=== PATIENT | female | born 1985 | race Caucasian/White ===

== ENCOUNTER → 2016-08-28 | Day surgery (SDC) | payer BC ==
[~2016-08-28] MED LIST: DEXAMETHASONE 4 MG/ML VIAL ONE; DOXYCYCLINE HYCLATE 100 MG CAP/TAB ONE; DOXYCYCLINE HYCLATE 100 MG CAP/TAB PO ONE; HYDROCODONE/APAP 5/325 TAB PO PRN; KETOROLAC 30 MG/1 ML SDV ONE; LIDOCAINE 2% 5 ML SDV ONE; MIDAZOLAM 2 MG/2 ML VIAL ONE; NALOXONE HCL 0.4 MG/ML INJ IVP PRN; ONDANSETRON 4 MG/2 ML VIAL IVP PRN; ONDANSETRON 4 MG/2 ML VIAL ONE; PROPOFOL/EMULSION 500 MG/50 ML BOTTLE IV ONE; fentaNYL 100 MCG/2 ML INJ IVP PRN; fentaNYL 100 MCG/2 ML INJ ONE
[2016-08-28 06:08] LABS: HEMATOCRIT 40.5 % (38.0-47.0); HEMOGLOBIN 13.8 g/dL (12.6-16.3); MEAN CELL HEMOGLOBIN 29.1 pg (27.9-34.1); MEAN CELL HEMOGLOBIN CONCENTR. 34.1 g/dL (32.4-36.7); MEAN CELL VOLUME 85.4 fL (81.5-99.8); RED BLOOD CELL COUNT 4.74 10^6/uL (4.18-5.33); RED CELL DISTRIBUTION WIDTH 13.5 % (11.5-15.2)
[2016-08-28 06:56] LABS: % IMMATURE GRANULYOCYTES 0.6 % (0.0-1.1); ABSOLUTE IMMATURE GRANULOCYTES 0.03 10^3/uL (0.00-0.10); ADD DIFF? NO; ADD MORPH? NO; ADD SCAN? NO; ATYPICAL LYMPHOCYTE FLAG 70 (0-99); FRAGMENT RBC FLAG 0 (0-99); HEMATOCRIT 40.6 % (38.0-47.0); HEMOGLOBIN 13.7 g/dL (12.6-16.3); LEFT SHIFT FLG 0 (0-99); LIPEMIA HEMOLYSIS FLAG 80 (0-99); MEAN CELL HEMOGLOBIN 28.7 pg (27.9-34.1); MEAN CELL HEMOGLOBIN CONCENTR. 33.7 g/dL (32.4-36.7); MEAN CELL VOLUME 85.1 fL (81.5-99.8); MEAN PLATELET VOLUME 11.3 fL (8.7-11.7); PLATELET CLUMPS FLAG 10 (0-99); PLATELET COUNT 161 10^3/uL (150-400); RED BLOOD CELL COUNT 4.77 10^6/uL (4.18-5.33); RED CELL DISTRIBUTION WIDTH 13.6 % (11.5-15.2)
--- NOTE | 2016-08-28 06:59 | GHP ---
[f rep st] PREOP HISTORY AND PHYSICAL DATE OF ADMISSION: 08/28/2016 Patient slated for surgery on 08/28/2016, on the obstetric service. HISTORY UPON PRESENTATION: The patient is a 31-year-old, G1, now A1, white female, who has been tosha gnosed with a missed AB at 10 weeks gestation. The patient had a sure last menstrual period of 03/0 09/2016, so would place her at 14 weeks gestation; however, there has been lack of growth since 10 weeks. The patient had a normal ultrasound and confirmation of good growth at 9 weeks gestation , and there was a viability with a normal heartbeat. Since that time, the patient has continued to have symptoms and nausea, and breast tenderness until approximately a week ago. She was s een on 08/23, at which time, heart tones could not be heard and an ultrasound was performed, a nd there was no cardiac activity. The patient has had serial HCG levels that showed a drop fo rm 7800 down to 5600, and the patient had a repeat ultrasound on 08/27 confirming the missed AB at 1 0 weeks. The patient did have some bleeding on Friday lightly, but no cramping. The patient was ad vised as to options for management. The patient feels she does not want to proceed with waiting for a miscarriage spontaneously, but wants to proceed with a D and C. Risks and benefits of the D and C were discussed with the patient, and the consent form will be signed at bedside before the surgery . 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 LABS: Maternal blood type A positive with negative antibody screen. RPR nonreactive. Rub jostin immune. Hepatitis B surface antigen negative, HIV negative. Cystic fibrosis, SMA, and fragile X negative. Verifi testing negative. Initial hemoglobin 14, hematocrit 42, and platelets 182,000. Urine culture was negative, except for aysha. Gonorrhea and chlamydia were negative. PAST MEDICAL HISTORY: The patient has had hypothyroidism for years and is followed by Dr. Altman . The patient also has vitiligo and celiac disease. PAST SURGICAL HISTORY: Odontectomy. ALLERGIES: The patient has an allergy to penicillin, causing hives. CURRENT MEDICATIONS: Synthroid 112 mcg daily with a double dose 1 day a week, vitamins, ca lcium, Unisom. SOCIAL HISTORY: The patient is and lives with her , [place]. The patient is a nonsmoke r. No alcohol or drug use. PHYSICAL EXAM: GENERAL: Upon admission, the patient is a well-developed, well-nourished, white fem yasir, in no physical distress, but emotionally sad. The patient is clinically afebrile. Weight 132 pounds, height 5 feet 5-1/2 inches, blood pressure 104/50. LUNGS: Clear to auscultation bilaterall y. CARDIOVASCULAR: Regular rate and rhythm. ABDOMEN: Soft and nontender. Pelvic exam performed was normal , with a 10-12 week-sized uterus. EXTREMITIES: Nontender with no edema. ASSESSMENT: Missed , 4 weeks behind gestational age, measuring 10 weeks 0 days with no feta l cardiac activity. Blood type A positive. PLAN: The patient wants to proceed with a D and C. She will arrive n.p.o. on 08/28. Advised to ta ke her morning Synthroid. Offered Anora testing, but the patient declines. History of hypothyroidi sm and celiac disease. /[id number]/MODL
--- NOTE | 2016-08-28 07:34 | PDANEPAE ---
ANE History of Present Illness Missed Ab. ANE Past Medical History - Cardiovascular History Hx Hypertension: No Hx Arrhythmias: No Hx Chest Pain: No Hx Coronary Artery / Peripheral Vascular Disease: No Hx CHF / Valvular Disease: No Hx Palpitations: No - Pulmonary History Hx COPD: No Hx Asthma/Reactive Airway Disease: No Hx Recent Upper Respiratory Infection: No Hx Oxygen in Use at Home: No - Endocrine History Hx Diabetes: No Hypothyroid: Yes ANE Review of Systems Review of Systems: Prior oral surgery without problems. ANE Patient History - Allergies Allergies/Adverse Reactions: Penicillins Allergy (Verified 08/28/16 05:50) Rash - Home Medications Home Medications: Levothyroxine 112 mg PO DAILY 08/28/16 [Last Taken 08/27/16 23:00] - NPO status NPO Since - Liquids (Date): 08/28/16 NPO Since - Liquids (Time): 00:00 NPO Since - Solids (Date): 08/28/16 NPO Since - Solids (Time): 00:00 - Anes Hx Anes Hx: no prior problems - Smoking Hx Smoking Status: Never smoked Marijuana use: No - Alcohol Use Alcohol Use: None - Family Anes Hx Family Anes Hx: neg - N/A ANE Labs/Vital Signs - Labs Result Diagrams: 08/28/16 05:45 - Vital Signs Height: 167.64 cm Weight: 58.967 kg ANE Physical Exam - Airway Neck exam: FROM Mallampati Score: Class 1 Mouth exam: normal dental/mouth exam - Pulmonary Pulmonary: no respiratory distress - Cardiovascular Cardiovascular: regular rate and rhythym - ASA Status ASA Status: I ANE Anesthesia Plan Anesthesia Plan: GA with mask
--- NOTE | 2016-08-28 11:14 | POSTANESTH ---
Post Anesthetic Evaluation Cardiovascular Status: Normal, Stable Respiratory Status: Normal, Stable, Similar to Pre-op Cond. Level of Consciousness/Mental Status: Can Participate in Eval, Mildly Sleepy, Arousable Pain Control: Adequate, Prn Tx Ordered Nausea/Vomiting Control: Adequate, Prn Tx Ordered Complications Possibly Related to Anesthesia: None Noted
== END | disposition home or self-care (01) ==
LOC: FOBOP 05:25
PROVIDERS: ATTEND Obstetrics & Gynecology
PROC: 10D17ZZ Extraction of Products of Conception, Retained, Via Natural or Artificial Opening (ICD-10-PCS; principal; 2016-08-28)
DX: O02.1 Missed abortion (principal); E03.9 Hypothyroidism, unspecified; L80 Vitiligo; K90.0 Celiac disease
CPT/HCPCS: J1100; J1885; J2250; J2405; J2704; J3010

== ENCOUNTER → 2017-03-04 | Outpatient (CLI) | payer BC | LOC: FIMAGING 08:17 | PROVIDERS: ATTEND Obstetrics & Gynecology | DX: O35.1XX0 Maternal care for (suspected) chromosomal abnormality in fetus, not applicable or unspecified (principal); O99.282 Endocrine, nutritional and metabolic diseases complicating pregnancy, second trimester; O99.612 Diseases of the digestive system complicating pregnancy, second trimester; E03.9 Hypothyroidism, unspecified; K90.0 Celiac disease; Z87.59 Personal history of other complications of pregnancy, childbirth and the puerperium; Z3A.14 14 weeks gestation of pregnancy ==

== ENCOUNTER → 2017-03-11 | Outpatient (CLI) | payer BC | LOC: FIMAGING 14:22 | PROVIDERS: ATTEND Obstetrics & Gynecology Maternal & Fetal Medicine | DX: O28.5 Abnormal chromosomal and genetic finding on antenatal screening of mother (principal); Z3A.15 15 weeks gestation of pregnancy ==

== ENCOUNTER → 2017-03-24 | Outpatient (CLI) | payer BC | LOC: FIMAGING 07:10 | PROVIDERS: ATTEND Obstetrics & Gynecology | DX: O35.1XX0 Maternal care for (suspected) chromosomal abnormality in fetus, not applicable or unspecified (principal); Z3A.17 17 weeks gestation of pregnancy ==

== ENCOUNTER → 2017-04-21 | Outpatient (CLI) | payer OTHER | LOC: FIMAGING 13:24 | PROVIDERS: ATTEND Obstetrics & Gynecology | DX: O35.1XX0 Maternal care for (suspected) chromosomal abnormality in fetus, not applicable or unspecified (principal); Z3A.21 21 weeks gestation of pregnancy ==

== ENCOUNTER → 2017-06-12 | Outpatient (CLI) | payer OTHER | LOC: FIMAGING 13:04 | PROVIDERS: ATTEND Obstetrics & Gynecology | DX: O35.1XX0 Maternal care for (suspected) chromosomal abnormality in fetus, not applicable or unspecified (principal); Z3A.29 29 weeks gestation of pregnancy ==

== ENCOUNTER → 2017-07-08 | Outpatient (CLI) | payer OTHER | LOC: FIMAGING 10:00 | PROVIDERS: ATTEND Obstetrics & Gynecology | DX: Z36.3 Encounter for antenatal screening for malformations (principal); O99.283 Endocrine, nutritional and metabolic diseases complicating pregnancy, third trimester; E03.9 Hypothyroidism, unspecified; Z3A.32 32 weeks gestation of pregnancy ==